=== PATIENT | female | born 1960 | race Caucasian/White ===

== ENCOUNTER 2023-08-31 17:07 | Emergency (ER) | payer OTHER ==
[~2023-08-31] VITALS: Ht 167.6 cm; Wt 72.6 kg
[2023-08-31] MEDS ORDERED: PENICILLIN V POTASSIUM 500 MG HOME.PACK PO ONE (17:45)
[2023-08-31] MEDS ORDERED: PENICILLIN V P500 MG PO (17:49)
[2023-08-31 17:57] VITALS: BP 137/98
== END 2023-08-31 17:59 | disposition home or self-care (01) ==
LOC: ED 17:07
DX: K08.89 Other specified disorders of teeth and supporting structures (principal); Z88.2 Allergy status to sulfonamides